=== PATIENT | female | born 1990 | race Caucasian/White ===

== ENCOUNTER → 2019-01-07 01:26 | Emergency (ER) | payer OTHER ==
[~2019-01-07 01:26] MED LIST: Phenazopyridine TAB* 100 MG PO ONE; Sulfamethox/Trimethoprim DS 800/160* TAB PO ONE
--- NOTE | 2019-01-07 02:16 | ED ---
GI/ HPI - HPI Summary HPI Summary: This patient is a 28 year old F presenting to with a chief complaint of UTI symptoms since 2 hours ago. The patient rates the pain 4/10 in severity. Patient reports dysuria, hematuria, and increased desire to urinate. Patient denies back pain or vomiting. The patient was diagnosed over the phone with a UTI from [facility]. [facility] 2 days ago. - History of Current Complaint Chief Complaint: EDUrogenitalProblems Time Seen by Provider: 01/07/19 01:51 Stated Complaint: POSS UTI Hx Obtained From: Patient Onset/Duration: Started Hours Ago - 2 Timing: Constant Pain Intensity: 4 Associated Signs and Symptoms: Positive: Hematuria, Dysuria, UTI Symptoms. Negative: Back Pain, Vomiting - Allergy/Home Medications Allergies/Adverse Reactions: Allergies Allergy/AdvReac Type Severity Reaction Status Date / Time cephalexin Allergy Itching Verified 01/07/19 01:33 PMH/Surg Hx/FS Hx/Imm Hx History: Reports: Other Problems/Disorders - UTI Sensory History: Denies: Hx Deafness Infectious Disease History: No Infectious Disease History: Denies: Traveled Outside the [place] in Last 30 Days - Family History Known Family History: Positive: Other - UTI - Social History Occupation: Student Review of Systems Negative: Vomiting Positive: burning, frequency - increased, hematuria Negative: Myalgia - back All Other Systems Reviewed And Are Negative: Yes Physical Exam - Summary Physical Exam Summary: VITAL SIGNS: Reviewed. GENERAL: Patient is a well-developed and nourished female who is lying comfortable in the stretcher. Patient is not in any acute respiratory distress. HEAD AND FACE: No signs of trauma. No ecchymosis, hematomas or skull depressions. No sinus tenderness. EYES: PERRLA, EOMI x 2, No injected conjunctiva, no nystagmus. EARS: Hearing grossly intact. Ear canals and tympanic membranes are within normal limits. MOUTH: Oropharynx within normal limits. NECK: Supple, trachea is midline, no adenopathy, no JVD, no carotid bruit, no c- spine tenderness, neck with full ROM. CHEST: Symmetric, no tenderness at palpation LUNGS: Clear to auscultation bilaterally. No wheezing or crackles. CVS: Regular rate and rhythm, S1 and S2 present, no murmurs or gallops appreciated. ABDOMEN: Soft, non-tender. No signs of distention. No rebound no guarding, and no masses palpated. Bowel sounds are normal. EXTREMITIES: FROM in all major joints, no edema, no cyanosis or clubbing. NEURO: Alert and oriented x 3. No acute neurological deficits. Speech is normal and follows commands. SKIN: Dry and warm GCS: 15 Triage Information Reviewed: Yes Vital Signs On Initial Exam: Initial Vitals Temp Pulse Resp BP Pulse Ox 98.9 F 95 18 123/82 99 01/07/19 01:32 01/07/19 01:32 01/07/19 01:32 01/07/19 01:32 01/07/19 01:32 Vital Signs Reviewed: Yes Diagnostics - Vital Signs Vital Signs Temp Pulse Resp BP Pulse Ox 01/07/19 01:32 98.9 F 95 18 123/82 99 - Laboratory Lab Statement: Any lab studies that have been ordered have been reviewed, and results considered in the medical decision making process. GIGU Course/Dx - Course Course Of Treatment: This patient is a 28 year old F presenting to with a chief complaint of UTI symptoms since 2 hours ago. The patient rates the pain 4/10 in severity. Patient reports dysuria, hematuria, and increased desire to urinate. Patient denies back pain or vomiting. Test results with no significant abnormalities. In the ED course the patient was given Phenazopyridine and Trimethoprim. Patient will be discharged with prescription for Phenazopryridine and Sulfamethox and follow up [place] [facility] [place]. The patient is agreeable with this plan. - Diagnoses Provider Diagnoses: Cystitis Discharge - Sign-Out/Discharge Documenting (check all that apply): Patient Departure - discharge Patient Received Moderate/Deep Sedation with Procedure: No - Discharge Plan Condition: Stable Disposition: HOME Prescriptions: Phenazopyridine TAB* [Pyridium 100 mg TAB*] 100 mg PO TID PRN #5 tab PRN Reason: Pain Sulfamethox/Trimethoprim DS* [Bactrim DS 800/160 TAB*] 1 tab PO BID #10 tab Patient Education Materials: Urinary Tract Infection in Women (ED) Referrals: [facility] [place] [Outside] - 2 Days Additional Instructions: Follow up with your primary care physician in 1-3 days. RETURN TO THE EMERGENCY DEPARTMENT FOR CHANGING OR WORSENING SYMPTOMS. - Billing Disposition and Condition Condition: STABLE Disposition: Home - Attestation Statements Document Initiated by Scribe: Yes Documenting Scribe: Osito Chacon Provider For Whom Laloibchencho is Documenting (Include Credential): Froilan Haider MD Scribe Attestation: I, Osito Chacon, scribed for Froilan Haider MD on 01/07/19 at 2123. Scribe Documentation Reviewed: Yes Provider Attestation: The documentation as recorded by the laloibeOsito accurately reflects the service I personally performed and the decisions made by me, Froilan Haider MD Status of Scribe Document: Viewed
[2019-01-07 03:21] LABS: Urine Appearance Turbid; Urine Bacteria Absent (Absent); Urine Bilirubin Negative (Negative); Urine Blood 3+ (Negative); Urine Color Yellow; Urine Glucose Negative (Negative); Urine Ketones Negative (Negative); Urine Nitrite Negative (Negative); Urine Protein 2+(100 mg/dL) (Negative); Urine Red Blood Cell 3+(>10/hpf) (Absent); Urine Specific Gravity 1.014 (1.010-1.030); Urine Urobilinogen Negative (Negative); Urine White Blood Cell 3+(>20/hpf) (Absent)
[2019-01-07 03:37] VITALS: BP 160/82
--- NOTE | 2019-01-09 06:13 | PN ---
Progress Note - Progress Note Date of Service: 01/07/19 Note: Urine culture preliminary grew Escherichia coli 100,000 Patient placed on Bactrim prior to discharge We'll await sensitivities
--- NOTE | 2019-01-10 05:36 | PN ---
Progress Note - Progress Note Date of Service: 01/07/19 Note: Patient was placed on Bactrim prior to discharge Organism grew Escherichia coli 100,000 Bactrim is sensitive to organism Nothing is further at this time
== END | disposition home or self-care (01) ==
LOC: ED 01:26
DX: N30.90 Cystitis, unspecified without hematuria (principal); N39.0 Urinary tract infection, site not specified; R31.9 Hematuria, unspecified; R30.0 Dysuria
CPT/HCPCS: 81003; 81015; 87077; 87086; 87186; 99282; A9270-GY

== ENCOUNTER 2020-02-07 09:38 | Emergency (ER) | payer OTHER ==
[2020-02-07 10:02] VITALS: BP 122/78
--- NOTE | 2020-02-07 12:06 | UC ---
Abdominal Pain Female HPI - HPI Summary HPI Summary: 30-year-old woman comes in with a chief complaint of bilateral flank pain and epigastric pain. This all started several days ago. No known trauma. The flank pain is not worse with twisting turning or bending. Does have some history of GERD. Does have decreased appetite. Food does not make the pain worse or better. Did have one episode of vomiting. Do not see any blood in the vomit has not seen any blood in her normal stools. No fevers or chills. No dysuria. No respiratory symptoms. - History of Current Complaint Chief Complaint: UCBackPain Stated Complaint: BACK PAIN Time Seen by Provider: 02/07/20 10:46 Hx Last Menstrual Period: 02/01/20 Pain Intensity: 3 Allergies/Adverse Reactions: Allergies Allergy/AdvReac Type Severity Reaction Status Date / Time cephalexin Allergy Itching Verified 02/07/20 10:02 Home Medications: Home Medications Nitrofurantoin Monohyd/M-Cryst [Macrobid 100 mg Capsule] 100 mg PO BID #14 cap 02/07/20 [Rx] PMH/Surg Hx/FS Hx/Imm Hx Previously Healthy: Yes - Surgical History Surgical History: Yes Surgery Procedure, Year, and Place: wisdom teeth - Family History Known Family History: Positive: Other - UTI - Social History Alcohol Use: None Substance Use Type: None Smoking Status (MU): Never Smoked Tobacco Review of Systems All Other Systems Reviewed And Are Negative: Yes Constitutional: Positive: Other - SEE HPI Skin: Positive: Negative Eyes: Positive: Negative ENT: Positive: Negative Respiratory: Positive: Negative Cardiovascular: Positive: Negative Gastrointestinal: Positive: Other - SEE HPI Genitourinary: Positive: Negative Motor: Positive: Negative Neurovascular: Positive: Negative Musculoskeletal: Positive: Negative Neurological/Mental Status: Positive: Negative Psychological: Positive: Negative Is Patient Immunocompromised?: No Physical Exam Triage Information Reviewed: Yes Appearance: Well-Appearing, No Pain Distress, Well-Nourished Vital Signs: Initial Vital Signs Temp 98 F 02/07/20 09:59 Pulse 69 02/07/20 09:59 Resp 16 02/07/20 09:59 BP 122/78 02/07/20 09:59 Pulse Ox 100 02/07/20 09:59 Vital Signs Reviewed: Yes Eye Exam: Normal Eyes: Positive: Conjunctiva Clear Neck: Positive: Supple Respiratory: Positive: Lungs clear, Normal breath sounds, No respiratory distress Cardiovascular: Positive: RRR Bowel Sounds: Positive: Present Musculoskeletal: Positive: Strength Intact, ROM Intact Neurological: Positive: Alert, Muscle Tone Normal Psychological: Positive: Age Appropriate Behavior Skin Exam: Normal Abd Pain Female Course/Dx - Course Course Of Treatment: Criminal Research Specialist: George Kelly ([id number]) Bundle Tier And Labeler: NATANAEL (NUANCE) Report Date: 02/07/2020 12:07:00 Report Status: Final Start of Report Content Patient Name: JEFF MARIN Medical Record#: [id number] Ordering Physician: Ed Neil MD Acct.#: [id number] : 06/1990 Age: 30 Sex: F Location: [facility] Exam Date: 02/07/20 1055 ADM Status: REG ER Order Information: US ABDOMEN COMPLETE Accession Number : [id number] CPT: 01684 HISTORY: Epigastric and flank pain (laterality not specified) COMPARISONS: None TECHNIQUE: Multiple transverse and longitudinal ultrasound images were obtained of the abdomen using grayscale and color flow imaging. FINDINGS: LIVER: The liver is normal in shape, size, contour, and echogenicity. There are no focal parenchymal masses. There is normal monophasic hepatopedal flow of the portal vein on spectral Doppler imaging. BILIARY TREE: There is no intrahepatic or extrahepatic biliary dilatation. The common duct measures up to 0.4; mm. GALLBLADDER: The gallbladder is well-visualized. There is no cholelithiasis, gallbladder wall thickening, pericholecystic fluid, or sonographic Thomas sign. PANCREAS: The visualized portions of the pancreas are sonographically normal. SPLEEN: The echogenically homogenous spleen measures up to 11.9 cm in maximum axial dimension. RIGHT KIDNEY: The right kidney is normal in shape, size, contour, and echogenicity. There is no hydronephrosis or nephrolithiasis. LEFT KIDNEY: The left kidney is normal in shape, size, contour , and echogenicity. There is no hydronephrosis or nephrolithiasis. AORTA AND IVC : The aorta and IVC are patent. appropriate arterial and venous waveforms are identified respectively. FLUID: There are no pleural effusions. There is no free fluid within the hepatorenal recess. IMPRESSION: Normal ultrasound examination of the abdomen as described above. <Electronically signed by George Kelly MD in OV> [id number] Dictated By: George Kelly MD Dictated Date/Time: 02/07/20 120 Transcribed Date/Time: 02/07/201200 Copy to: CC:No Primary Care Phys,NOPCP ; Ed Neil MD Imaging - [facility] [address] [address] ph ([phone] ph [phone] ph ([phone]) End of Report Content I discussed the ultrasound results with the patient. I also discussed the urine results with the patient. This is unlikely to be a kidney infection this time given the normal ultrasound normal urine. Urine was sent for culture. We discussed treating with Macrobid if there is any concern of a kidney infection. I do not a prescription patient's decide whether or not to take the Macrobid. There is also epigastric discomfort and patient will start omeprazole 20 mg twice a day for 2 weeks. Let her know to not taking ibuprofen that she can take Tylenol. We also discussed that if anything gets worse with fevers chills increased or continued pain or blood in the vomit or stool or any other concerns patient she get evaluated emergency department. - Differential Dx/Diagnosis Provider Diagnosis: Flank pain, Epigastric pain Discharge ED - Sign-Out/Discharge Documenting (check all that apply): Patient Departure All imaging exams completed and their final reports reviewed: Yes - Discharge Plan Condition: Stable Disposition: HOME Prescriptions: Nitrofurantoin Monohyd/M-Cryst [Macrobid 100 mg Capsule] 100 mg PO BID #14 cap Patient Education Materials: Flank Pain (ED), Epigastric Pain (ED) Referrals: [facility]ERR[facility] [Outside] [facility] [Provider Group] Additional Instructions: FOLLOW UP WITH YOUR DOCTOR. Take an antacid medicine such as omeprazole 20 mg twice a day for 2 weeks. GET REVALUATED SOONER IF NOT IMPROVED. GO TO THE EMERGENCY DEPARTMENT IF WORSE; PAIN, FEVER, YOU FEEL ILL, BLOOD IN YOUR VOMIT OR STOOL OR ANY QUESTIONS OR CONCERNS. - Billing Disposition and Condition Condition: STABLE Disposition: Home
--- NOTE | 2020-02-08 16:50 | UC ---
- Progress Note Progress Note: PLEASE NOTIFY PT NO UTI STOP ANTIBIOTIC MICHELLE Course/Dx - Diagnoses Provider Diagnoses: Flank pain, Epigastric pain Discharge ED - Sign-Out/Discharge Documenting (check all that apply): Post-Discharge Follow Up All imaging exams completed and their final reports reviewed: Yes - Discharge Plan Condition: Stable Disposition: HOME Prescriptions: Nitrofurantoin Monohyd/M-Cryst [Macrobid 100 mg Capsule] 100 mg PO BID #14 cap Patient Education Materials: Flank Pain (ED), Epigastric Pain (ED) Referrals: [facility] [Provider Group] [facility] [place] [facility] REFERRAL [Outside] Additional Instructions: FOLLOW UP WITH YOUR DOCTOR. Take an antacid medicine such as omeprazole 20 mg twice a day for 2 weeks. GET REVALUATED SOONER IF NOT IMPROVED. GO TO THE EMERGENCY DEPARTMENT IF WORSE; PAIN, FEVER, YOU FEEL ILL, BLOOD IN YOUR VOMIT OR STOOL OR ANY QUESTIONS OR CONCERNS. - Billing Disposition and Condition Condition: STABLE Disposition: Home
== END 2020-02-07 12:25 | disposition home or self-care (01) ==
LOC: UCEAST 09:38
DX: R10.13 Epigastric pain (principal); R10.9 Unspecified abdominal pain; Z88.1 Allergy status to other antibiotic agents
CPT/HCPCS: 76700; 81003; 87086; 99212; G0463